=== PATIENT | male | born 1995 | race Two or more races ===

== ENCOUNTER 2022-10-08 21:03 | Inpatient (IN) | payer MEDICAID, OTHER ==
[~2022-10-08] VITALS: Ht 177.8 cm; Wt 77.5 kg
[2022-10-08] MEDS ORDERED: NALOXONE HCL 1MG/ML 2ML SYRINGE IV ONE (21:15)
[2022-10-08 22:47] LABS: Basophils # (auto) 0.1 10 ^3/uL (0-0.2); Basophils % (auto) 1.5 % (0.0-2.0); Eosinophils # (auto) 0.1 10 ^3/uL (0-0.8); Eosinophils % (auto) 1.1 % (0.0-7.0); Hematocrit 43.7 % (41.0-53.0); Lymphocytes # (auto) 2.4 10 ^3/uL (0.4-5.4); Lymphocytes % (auto) 25.2 % (10.0-50.0); Mean Corpuscular Hemoglobin 29.8 pg (28.0-32.0); Mean Corpuscular Hgb Conc. 34.2 g/dL (32.0-36.0); Mean Corpuscular Volume 87.1 fL (80.0-100.0); Monocytes # (auto) 0.6 10 ^3/uL (0-1.3); Monocytes % (auto) 6.6 % (0.0-12.0); Neutrophils # (auto) 6.2 10 ^3/uL (1.6-8.6); Neutrophils % (auto) 65.6 % (37.0-80.0); Nucleated Red Blood Cells % 0.1 %; Red Blood Cells 5.02 10^6/uL (4.5-5.90); Red Cell Distribution Width 14.1 % (11.8-14.3); White Blood Cell 9.4 10^3/uL (4.4-10.8)
[2022-10-08 23:00] LABS: Anion Gap 6 (5-15); Blood Alcohol < 3.0 mg/dL (0-5); Blood Urea Nitrogen 16 mg/dL (7-18); Calcium 9.6 mg/dL (8.5-10.1); Carbon Dioxide 24 mmol/L (21-32); Chloride 110 mmol/L (98-107); Glucose 114 mg/dL (74-106); Potassium 3.4 mmol/L (3.5-5.1); Sodium 140 mmol/L (136-145)
[2022-10-08 23:04] LABS: Alanine Aminotransferase 19 U/L (16-61); Alkaline Phosphatase 110 U/L (45-117); Aspartate Aminotransferase 20 U/L (15-37); BUN/Creatinine Ratio 18.2 (10.0-20.0); Bilirubin, Total 0.6 mg/dL (0.2-1.0); GFR African American 133 mL/min; GFR Non-African American 110 mL/min; Total Protein 7.9 g/dL (6.4-8.2)
[2022-10-08 23:19] LABS: Urine Bacteria NONE SEEN /hpf (None Seen); Urine Blood Negative /uL (Negative); Urine Mucus FEW (None Seen); Urine Specific Gravity 1.029 (1.001-1.035); Urine WBC 2 /hpf (0 - 3)
[2022-10-08 23:27] LABS: Alcohol, Urine < 3.0 mg/dL (0-10); Amphetamine Screen, Urine NEGATIVE (NEGATIVE); Barbiturate Scree,Urine NEGATIVE (NEGATIVE); Benzodiazephine Screen, Urine NEGATIVE (NEGATIVE); Cannabinoid Screen, Urine NEGATIVE (NEGATIVE); Cocaine Screen, Urine NEGATIVE (NEGATIVE); Opiate Scree,Urine NEGATIVE (NEGATIVE); Phencyclidine Screen, Urine NEGATIVE (NEGATIVE)
[2022-10-09] MEDS ORDERED: ONDANSETRON HCL 4 MG/2 ML VIAL IV PRN (09:00)
[2022-10-09] MEDS ORDERED: HALOPERIDOL LACTATE 5 MG/ML INJ VIAL IM PRN (09:00)
[2022-10-09] MEDS ORDERED: DOCUSATE SOD 100 MG CAP PO PRN (09:00)
[2022-10-09] MEDS: POTASSIUM CHL 20 Meq TABLET PO SCH (10:00)
[2022-10-09] MEDS: SODIUM CHLORIDE 0.9% 1,000 ML IV SCH (10:44)
[2022-10-09] MEDS: PANTOPRAZOLE 40 MG/10 ML VIAL INJ IV SCH (10:44)
[2022-10-09] MEDS ORDERED: diphenhdrAMINE HCL 50 MG/1 ML VL IV ONE (13:30)
[2022-10-09] MEDS ORDERED: HALOPERIDOL LACTATE 5 MG/ML INJ VIAL IM ONE (13:30)
[2022-10-09] MEDS ORDERED: LORazepam 2MG/ML-1ML VIAL IV PRN (15:30)
[2022-10-09] MEDS ORDERED: LORazepam 2MG/ML-1ML VIAL ONE (15:34)
[2022-10-09] MEDS ORDERED: LORazepam 2MG/ML-1ML VIAL IV ONE (16:00)
[2022-10-09 22:10] VITALS: BP 120/54
[2022-10-10] MEDS: SODIUM CHLORIDE 0.9% 1,000 ML IV SCH ×3 (01:40→18:00)
[2022-10-10 05:00] VITALS: BP 114/68
[2022-10-10 06:31] LABS: Albumin 3.8 g/dL (3.4-5.0); Calcium 9.4 mg/dL (8.5-10.1); Potassium 3.9 mmol/L (3.5-5.1)
[2022-10-10 06:35] LABS: BUN/Creatinine Ratio 19.8 (10.0-20.0); Bilirubin, Total 0.9 mg/dL (0.2-1.0); Total Protein 7.8 g/dL (6.4-8.2)
[2022-10-10 06:39] LABS: Basophils # (auto) 0.1 10 ^3/uL (0-0.2); Basophils % (auto) 1.1 % (0.0-2.0); Eosinophils # (auto) 0.1 10 ^3/uL (0-0.8); Eosinophils % (auto) 1.7 % (0.0-7.0); Hematocrit 45.4 % (41.0-53.0); Lymphocytes # (auto) 2.1 10 ^3/uL (0.4-5.4); Mean Corpuscular Hemoglobin 29.5 pg (28.0-32.0); Mean Corpuscular Volume 89.4 fL (80.0-100.0); Monocytes # (auto) 0.5 10 ^3/uL (0-1.3); Monocytes % (auto) 6.3 % (0.0-12.0); Neutrophils % (auto) 63.9 % (37.0-80.0); Red Blood Cells 5.08 10^6/uL (4.5-5.90); Red Cell Distribution Width 14.2 % (11.8-14.3); White Blood Cell 7.8 10^3/uL (4.4-10.8)
[2022-10-10] MEDS: POTASSIUM CHL 20 Meq TABLET PO SCH ×2 (10:00→10:48)
[2022-10-10] MEDS: PANTOPRAZOLE 40 MG/10 ML VIAL INJ IV SCH (10:47)
[2022-10-10 12:30] VITALS: BP 111/69
[2022-10-10 12:52] LABS: Urine Bacteria NONE SEEN /hpf (None Seen); Urine Blood 2+ /uL (Negative); Urine Mucus FEW (None Seen); Urine Specific Gravity 1.036 (1.001-1.035); Urine WBC 4 /hpf (0 - 3)
[2022-10-10 16:26] VITALS: BP 133/59
[2022-10-10] MEDS: OLANZapine 5 MG TAB PO SCH (18:00)
[2022-10-10 22:00] VITALS: BP 127/56
[2022-10-11 05:00] VITALS: BP 115/71
[2022-10-11 08:35] VITALS: BP 132/80
[2022-10-11] MEDS: PANTOPRAZOLE 40 MG/10 ML VIAL INJ IV SCH (11:12)
[2022-10-11] MEDS: OLANZapine 5 MG TAB PO SCH (11:13)
[2022-10-11] MEDS: SODIUM CHLORIDE 0.9% 1,000 ML IV SCH (11:20)
== END 2022-10-11 14:00 | disposition left against medical advice (07) | DRG 812 ==
LOC: EDBD 21:03 → ER 21:03 → OVERFLOW 10-09 09:01 → WEST WING 10-09 20:40
PROVIDERS: ADMIT Nurse Practitioner Family; ATTEND Internal Medicine
DX: T40.601A Poisoning by unspecified narcotics, accidental (unintentional), initial encounter (principal); G92.8 Other toxic encephalopathy; F23 Brief psychotic disorder; Z56.0 Unemployment, unspecified; E87.6 Hypokalemia; Y92.89 Other specified places as the place of occurrence of the external cause; Z53.29 Procedure and treatment not carried out because of patient's decision for other reasons; R82.4 Acetonuria; E86.0 Dehydration
CPT/HCPCS: 36415; 70450; 71045; 80053; 80307; 80320; 81001; 85025; C9113; G0378; J2405